=== PATIENT | male | born 1945 | race African-American/Black ===

== ENCOUNTER 2019-06-13 20:22 | Emergency (ER) | payer MEDICARE, MEDICAID ==
[~2019-06-13] VITALS: Ht 172.7 cm; Wt 90.0 kg
[~2019-06-13 20:22] MED LIST: AMLO2.5T45 PO
[2019-06-13] MEDS ORDERED: KETOROLAC 30MG/ML VIAL IV STA (23:16)
[2019-06-13] MEDS ORDERED: ONDANSETRON HCL 4MG/2ML INJ IV STA (23:16)
[2019-06-13] MEDS ORDERED: MORPHINE SULFATE 4 MG/ML CPJ (NOT FOR IM USE) IV STA (23:16)
[2019-06-14 00:26] LABS: HEMATOCRIT. 44.7 % (42.0-52.0); HEMOGLOBIN. 14.4 g/dL (14.0-18.0); MEAN CORPUSCULAR HEMOGLOBIN 28.6 pg (28.0-32.0); MEAN CORPUSCULAR VOLUME 88.7 fL (80.0-94.0); MEAN PLATELET VOLUME 8.1 fl (7.4-10.4); PLATELET 161 x1000/uL (130-400); RED BLOOD CELL COUNT 5.04 mill/uL (4.7-6.1); RED CELL DISTRIBUTION WIDTH 13.7 % (11.6-14.6)
[2019-06-14 00:41] LABS: CHLORIDE 100 mEq/L (98-107)
[2019-06-14 02:35] VITALS: BP 138/78
[2019-06-14 05:45] LABS: PLATELET ESTIMATE NORMAL
== END 2019-06-14 02:42 | disposition home or self-care (01) ==
LOC: ER 20:22
DX: S62.102A Fracture of unspecified carpal bone, left wrist, initial encounter for closed fracture (principal); I10 Essential (primary) hypertension; E11.9 Type 2 diabetes mellitus without complications; Z93.3 Colostomy status; Z85.038 Personal history of other malignant neoplasm of large intestine; Z98.890 Other specified postprocedural states; W01.0XXA Fall on same level from slipping, tripping and stumbling without subsequent striking against object, initial encounter; Y93.89 Activity, other specified; Y92.018 Other place in single-family (private) house as the place of occurrence of the external cause
CPT/HCPCS: 29125; 36415; 73090; 73110; 73130; 80053; 82962; 83880; 84484; 85025; 96374; 96375; 99284; J1885; J2270; J2405

== ENCOUNTER 2020-06-13 17:24 | Emergency (ER) | payer MEDICARE, OTHER ==
[~2020-06-13] VITALS: Ht 182.9 cm; Wt 89.0 kg
[2020-06-13 19:13] LABS: HEMATOCRIT. 37.9 % (42.0-52.0); HEMOGLOBIN. 12.7 g/dL (14.0-18.0); MEAN CORPUSCULAR HEMOGLOBIN 28.4 pg (28.0-32.0); MEAN CORPUSCULAR VOLUME 85.1 fL (80.0-94.0); MEAN PLATELET VOLUME 7.8 fl (7.4-10.4); PLATELET 200 x1000/uL (130-400); RED BLOOD CELL COUNT 4.45 mill/uL (4.7-6.1)
[2020-06-13 19:21] LABS: CHLORIDE 102 mEq/L (98-107)
[2020-06-13 19:23] LABS: INR 1.2; PROTHROMBIN TIME 12.4 sec (9.6-11.0)
[2020-06-13 20:19] LABS: CLARITY URINE CLEAR (CLEAR); COLOR URINE YELLOW (YELLOW); KETONES URINE NEGATIVE (NEGATIVE); LEUKOCYTE ESTERASE URINE NEGATIVE (NEGATIVE); NITRITE URINE NEGATIVE (NEGATIVE); OCCULT BLOOD URINE NEGATIVE (NEGATIVE); PROTEIN URINE NEGATIVE (NEGATIVE); SPECIFIC GRAVITY URINE 1.018 (1.005-1.030)
[2020-06-13 20:25] LABS: PLATELET ESTIMATE NORMAL
[2020-06-13 20:53] LABS: *AMPHETAMINES SCREEN URINE NEGATIVE (NEGATIVE); *BARBITURATES SCREEN URINE NEGATIVE (NEGATIVE); *BENZODIAZEPINES SCREEN URINE NEGATIVE (NEGATIVE); *COCAINE SCREEN URINE NEGATIVE (NEGATIVE); METHADONE URINE SCREEN PRESUMTIVE POSITIVE (NEGATIVE); OPIATES URINE SCREEN PRESUMTIVE POSITIVE (NEGATIVE); PHENCYCLIDINE URINE SCREEN NEGATIVE (NEGATIVE)
[2020-06-13 20:54] LABS: CANNABINOID URINE SCREEN NEGATIVE (NEGATIVE)
[2020-06-13] MEDS ORDERED: ONDA4TAB5 MT (22:35)
[2020-06-13 23:40] VITALS: BP 132/69
== END 2020-06-13 23:53 | disposition home or self-care (01) ==
LOC: ER 17:24 → CANBEDREQ 22:51 → ER 23:53
DX: R10.9 Unspecified abdominal pain (principal); I10 Essential (primary) hypertension; E11.9 Type 2 diabetes mellitus without complications; Z13.9 Encounter for screening, unspecified; Z85.038 Personal history of other malignant neoplasm of large intestine; Z98.890 Other specified postprocedural states; Z93.3 Colostomy status
CPT/HCPCS: 36415; 71045; 74176; 80053; 80305; 81003; 83605; 84145; 84484; 85025; 86850; 86900; 93005; 99285

== ENCOUNTER 2023-02-14 07:33 | Emergency (ER) | payer MEDICARE, OTHER ==
[~2023-02-14] VITALS: Ht 172.7 cm; Wt 75.3 kg
[~2023-02-14 07:33] MED LIST changes: +ONDA4TAB5 MT
[2023-02-14 07:41] VITALS: O2SAT 100
[2023-02-14] MEDS ORDERED: ONDANSETRON 4MG ODT PO STA (08:14)
[2023-02-14] MEDS ORDERED: ACETAMINOPHEN 325MG TABLET PO STA (08:14)
[2023-02-14 08:51] LABS: BASOPHILS % 0.3 % (0.0-2.0); EOSINOPHILS % 0.2 % (0.0-5.0); HEMATOCRIT. 39.2 % (42.0-52.0); HEMOGLOBIN. 12.6 g/dL (14.0-18.0); LYMPHOCYTES % 8.8 % (20.0-50.0); MEAN CORPUSCULAR HEMOGLOBIN 27.7 pg (28.0-32.0); MEAN CORPUSCULAR HGB CONC 32.2 g/dL (31.0-37.0); MEAN CORPUSCULAR VOLUME 85.9 fL (80.0-94.0); MEAN PLATELET VOLUME 7.3 fl (7.4-10.4); MONOCYTES % 14.4 % (2.0-8.0); NEUTROPHILS % 76.3 % (40.0-76.0); PLATELET 196 x1000/uL (130-400); RED BLOOD CELL COUNT 4.57 mill/uL (4.7-6.1); RED CELL DISTRIBUTION WIDTH 14.6 % (11.6-14.6); WHITE BLOOD COUNT 12.9 x1000/uL (4.5-11.0)
[2023-02-14 09:02] LABS: INR 1.1; PROTHROMBIN TIME 12.2 sec (9.6-11.0)
[2023-02-14 09:03] LABS: CALCIUM 8.8 mg/dL (8.5-10.1); CHLORIDE 99 mEq/L (98-107); GLUCOSE 147 mg/dL (70-105); INDEX HEMOLYSI 1 (1-3); INDEX ICTERIC 1 (1-4); INDEX LIPEMIC 1 (1-3); POTASSIUM 3.8 mEq/L (3.5-5.1); SODIUM 133 mEq/L (136-145)
[2023-02-14 09:11] LABS: ALANINE AMINOTRANSFERASE 62 IU/L (13-61); ALBUMIN 3.1 g/dL (3.4-5.0); ASPARTATE AMINOTRANSFERASE 74 IU/L (15-37); BILIRUBIN TOTAL 1.3 mg/dL (0.1-1.0); CARBON DIOXIDE 29 mEq/L (21-32); CREATININE 0.5 mg/dL (0.6-1.3); PROTEIN TOTAL 9.2 g/dL (6.0-8.3); TROPONIN I HIGH SENSITIVITY 10 ng/L (<78); UREA NITROGEN BLOOD 9 mg/dL (7-21)
[2023-02-14] MEDS ORDERED: CEPHALEXIN 250MG CAPSULE PO NR (12:30)
[2023-02-14] MEDS ORDERED: CIPR-263 MT (15:27)
[2023-02-14] MEDS ORDERED: POLY17PO3 MT (15:27)
[2023-02-14 15:41] VITALS: BP 139/86; PULSE 84; RESP 18; TEMP 98.7
== END 2023-02-14 15:42 | disposition home or self-care (01) ==
LOC: ER 07:49
DX: K59.00 Constipation, unspecified (principal); E11.9 Type 2 diabetes mellitus without complications; I10 Essential (primary) hypertension; Z98.890 Other specified postprocedural states
CPT/HCPCS: 99284; 74176; 80053; 83690; 85025; 85610; 84484; 36415; Q0162